=== PATIENT | female | born 1995 | race Caucasian/White ===

== ENCOUNTER 2018-12-10 06:38 | Inpatient (IN) | payer MEDICAID ==
[~2018-12-10] VITALS: Ht 167.6 cm; Wt 95.0 kg
[2018-12-10] MEDS ORDERED: OXYTOCIN 30U/ 0.9% NaCL 500ML 500 ML IV ONE (07:12)
[2018-12-10] MEDS: LACTATED RINGERS 1,000 ML IV SCH (07:28)
[2018-12-10] MEDS ORDERED: MISOPROSTOL 25 MCG TABLET VG PRN (07:30)
[2018-12-10] MEDS ORDERED: ONDANSETRON 2MG/ML, 2ML IVPush PRN (07:30)
[2018-12-10] MEDS ORDERED: TERBUTALINE 1 MG/ML, 1ML IVPush PRN (07:30)
[2018-12-10] MEDS ORDERED: FENTANYL PF 100 MCG/2ML IV PRN (07:30)
[2018-12-10] MEDS ORDERED: FENTANYL PF 100 MCG/2ML IVPush PRN (07:30)
[2018-12-10] MEDS ORDERED: NEWBORN KIT ONE (07:50)
[2018-12-10] MEDS ORDERED: MISOPROSTOL 25 MCG TABLET ONE (07:50)
[2018-12-10] MEDS ORDERED: PLEASE ENTER ALLERGIES MC SCH (08:00)
[2018-12-10] MEDS ORDERED: PLEASE ENTER HEIGHT AND WEIGHT MC SCH (08:00)
[2018-12-10 08:04] LABS: BASOPHILS # (AUTO) 0.03 x10^3/uL (0-0.1); BASOPHILS % (AUTO) 0 % (0-1); EOSINOPHILS # (AUTO) 0.09 x10^3/uL (0-0.4); EOSINOPHILS % (AUTO) 1 % (1-7); LYMPHOCYTES # (AUTO) 1.59 x10^3/uL (1-3.4); LYMPHOCYTES % (AUTO) 14 % (22-44); MD NO; MEAN CORPUSCULAR HEMOGLOBIN 30.3 pg (27.0-34.8); MEAN CORPUSCULAR HGB CONC 33.2 g/dL (32.4-35.8); MEAN CORPUSCULAR VOLUME 91.2 fL (80-100); MEAN PLATELET VOLUME 8.8 fL (7.4-10.4); MONOCYTES # (AUTO) 0.71 x10^3/uL (0.2-0.8); MONOCYTES % (AUTO) 6 % (2-9); NEUTROPHILS # (AUTO) 9.26 x10^3/uL (1.8-6.8); NEUTROPHILS % (AUTO) 79 % (42-75); PLATELET COUNT 216 x10^3/uL (130-400); RED BLOOD COUNT 4.04 x10^6/uL (3.82-5.3); RED CELL DISTRIBUTION WIDTH 15.8 % (9.6-15.2)
[2018-12-10 08:09] VITALS: BP 122/73
[2018-12-10 10:17] LABS: AMPHETAMINE SCREEN, URINE Negative (Negative); BARBITURATE SCREEN, URINE Negative (Negative); BENZODIAZEPINE SCREEN, URINE Negative (Negative); CANNABINOID SCREEN, URINE Negative (Negative); COCAINE SCREEN, URINE Negative (Negative); METHADONE SCREEN, URINE Negative (Negative); OPIATE SCREEN, URINE Negative (Negative)
[2018-12-10] MEDS: D5%-LACTATED RINGERS 1,000 ML IV SCH (15:56)
[2018-12-11 07:30] VITALS: BP 128/66
[2018-12-11] MEDS: LACTATED RINGERS 1,000 ML IV SCH ×3 (08:20→18:11)
[2018-12-11] MEDS: D5%-LACTATED RINGERS 1,000 ML IV SCH ×2 (08:23→21:14)
[2018-12-11] MEDS ORDERED: OXYTOCIN 30U/ 0.9% NaCL 500ML 500 ML IV PRN (09:22)
[2018-12-11] MEDS ORDERED: OXYTOCIN 30U/ 0.9% NaCL 500ML 500 ML ONE (09:24)
[2018-12-11] MEDS ORDERED: FENTANYL/BUPIV./NS/PF 250 ML EPIDCONT SCH ×2 (16:43→17:39)
[2018-12-11] MEDS ORDERED: FENTANYL PF 500 MCG, BUPIVACAINE/PF 0.5%, 30ML 62.5 ML in SODIUM CHLORIDE 0.9% 177.5 ML EPIDCONT SCH (17:00)
[2018-12-11] MEDS ORDERED: BUPIVACAINE 0.25% ONE ×2 (17:17→17:19)
[2018-12-11] MEDS ORDERED: FENTANYL/BUPIV./NS/PF 250 ML EPIDCONT ONE (17:19)
[2018-12-11] MEDS ORDERED: LIDOCAINE/PF 1.5%-EPI 1:200K, 30ML ONE (17:19)
[2018-12-11] MEDS ORDERED: LIDOCAINE 1%, 20ML ONE (17:19)
[2018-12-11] MEDS ORDERED: LACTATED RINGERS 1,000 ML IV SCH (17:39)
[2018-12-11] MEDS ORDERED: ONDANSETRON 2MG/ML, 2ML IVPush PRN (18:00)
[2018-12-11] MEDS ORDERED: NALOXONE 0.4 MG/ML, 1ML IVPush PRN (18:00)
[2018-12-11] MEDS ORDERED: EPHEDRINE 50 MG/ML, 1ML IVPush PRN (18:00)
[2018-12-11] MEDS ORDERED: LACTATED RINGERS 1,000 ML IVBOLUS PRN (18:00)
[2018-12-11] MEDS ORDERED: DIPHENHYDRAMINE 50 MG/ML, 1ML IVPush PRN (18:00)
[2018-12-12] MEDS ORDERED: METHYLERGONOVINE 0.2 MG/ML IM ONE (00:40)
[2018-12-12] MEDS ORDERED: OXYTOCIN 30U/ 0.9% NaCL 500ML 500 ML ONE (01:51)
[2018-12-12] MEDS: OXYTOCIN 30U/ 0.9% NaCL 500ML 500 ML IV SCH ×3 (01:59→21:45)
[2018-12-12] MEDS ORDERED: ACETAMINOPHEN 325 MG TABLET PO PRN (02:00)
[2018-12-12] MEDS ORDERED: HYDROcodone/APAP 5/325 TABLET PO PRN ×2 (02:00)
[2018-12-12] MEDS ORDERED: METHYLERGONOVINE 0.2 MG/ML IM PRN (02:00)
[2018-12-12] MEDS ORDERED: ONDANSETRON 2MG/ML, 2ML IV PRN (02:00)
[2018-12-12] MEDS ORDERED: BISACODYL 10 MG SUPP PR PRN (02:00)
[2018-12-12] MEDS ORDERED: CARBOPROST TROMETHAMINE 250 MCG/ML, 1ML IM PRN (02:00)
[2018-12-12] MEDS ORDERED: MISOPROSTOL 200 MCG TABLET PR PRN (02:00)
[2018-12-12 04:31] VITALS: BP 123/79
[2018-12-12 08:15] VITALS: BP 113/71
[2018-12-12 11:21] LABS: MEAN CORPUSCULAR HEMOGLOBIN 30.9 pg (27.0-34.8); MEAN CORPUSCULAR HGB CONC 33.7 g/dL (32.4-35.8); MEAN CORPUSCULAR VOLUME 91.8 fL (80-100); MEAN PLATELET VOLUME 9.1 fL (7.4-10.4); PLATELET COUNT 193 x10^3/uL (130-400); RED BLOOD COUNT 3.95 x10^6/uL (3.82-5.3); RED CELL DISTRIBUTION WIDTH 15.9 % (9.6-15.2)
[2018-12-12 11:37] LABS: BASOPHILS % (AUTO) 0 % (0-1); EOSINOPHILS # (AUTO) 0.03 x10^3/uL (0-0.4); EOSINOPHILS % (AUTO) 0 % (1-7); LYMPHOCYTES # (AUTO) 1.57 x10^3/uL (1-3.4); LYMPHOCYTES % (AUTO) 9 % (22-44); MD SCAN; MONOCYTES # (AUTO) 0.85 x10^3/uL (0.2-0.8); MONOCYTES % (AUTO) 5 % (2-9); NEUTROPHILS # (AUTO) 16.07 x10^3/uL (1.8-6.8); NEUTROPHILS % (AUTO) 87 % (42-75)
[2018-12-12] MEDS: PRENATAL VIT/IRON/FA 1 EACH TABLET PO SCH (12:57)
[2018-12-12] MEDS: IBUPROFEN 600 MG TABLET PO PRN ×2 (12:57→22:27)
[2018-12-12] MEDS: DOCUSATE 100 MG CAPSULE PO PRN ×2 (12:57→22:27)
[2018-12-12 13:50] VITALS: BP 103/69
[2018-12-12 19:35] VITALS: BP 110/6
[2018-12-13 00:50] VITALS: BP 110/73
[2018-12-13] MEDS: IBUPROFEN 600 MG TABLET PO PRN ×2 (05:04→12:00)
[2018-12-13 07:35] VITALS: BP 121/84
[2018-12-13] MEDS: OXYTOCIN 30U/ 0.9% NaCL 500ML 500 ML IV SCH (07:45)
[2018-12-13] MEDS: PRENATAL VIT/IRON/FA 1 EACH TABLET PO SCH (10:24)
[2018-12-13] MEDS ORDERED: IBUP-1222 PO (14:54)
[2018-12-13] MEDS ORDERED: DOCU-131 PO (14:54)
== END 2018-12-13 16:00 | disposition home or self-care (01) | DRG 807 ==
LOC: LDIP 06:38 → 2NW 12-12 04:17
PROVIDERS: ADMIT Obstetrics & Gynecology Maternal & Fetal Medicine; ATTEND Obstetrics & Gynecology Maternal & Fetal Medicine
PROC: 3E033VJ Introduction of Other Hormone into Peripheral Vein, Percutaneous Approach (ICD-10-PCS; 2018-12-11)
PROC: 10907ZC Drainage of Amniotic Fluid, Therapeutic from Products of Conception, Via Natural or Artificial Opening (ICD-10-PCS; 2018-12-11)
PROC: 10E0XZZ Delivery of Products of Conception, External Approach (ICD-10-PCS; principal; 2018-12-12)
PROC: 0U7C7ZZ Dilation of Cervix, Via Natural or Artificial Opening (ICD-10-PCS; 2018-12-12)
PROC: 0HQ9XZZ Repair Perineum Skin, External Approach (ICD-10-PCS; 2018-12-12)
PROC: 3E0R3BZ Introduction of Anesthetic Agent into Spinal Canal, Percutaneous Approach (ICD-10-PCS; 2018-12-12)
PROC: 00HU33Z Insertion of Infusion Device into Spinal Canal, Percutaneous Approach (ICD-10-PCS; 2018-12-12)
PROC: 10H07YZ Insertion of Other Device into Products of Conception, Via Natural or Artificial Opening (ICD-10-PCS; 2018-12-12)
DX: O99.354 Diseases of the nervous system complicating childbirth (principal); Z37.0 Single live birth; Z3A.39 39 weeks gestation of pregnancy; G43.909 Migraine, unspecified, not intractable, without status migrainosus; O70.0 First degree perineal laceration during delivery
CPT/HCPCS: 36415; J7121; 59200; 80307; 85025; 86850; 86900; G0378; J3490; J2590; J3010; J7120